=== PATIENT | female | born 1970 | race Caucasian/White ===

== ENCOUNTER → 2018-11-18 | Outpatient (CLI) | payer OTHER | LOC: MAMMO 11:35 | PROVIDERS: ATTEND Family Medicine | DX: Z12.31 Encounter for screening mammogram for malignant neoplasm of breast (principal) | CPT/HCPCS: 77067 ==

== ENCOUNTER → 2018-12-16 | Outpatient (CLI) | payer OTHER ==
--- NOTE | 2018-12-19 08:23 | Diagnostic Imaging Report ---
#[id number] - USBRELIMLT ULTRASOUND OF THE LEFT BREAST : 12/16/2018 Comparison is made to exams dated: 12/16/2018 mammogram and 11/18/2018 mammogram - [facility]. Color flow and real-time ultrasound were performed on the left breast with scanning in the lower inner quadrant. -There is a hypoechoic nodule measuring 1.0 x 0.5 x 0.6 cm at the 9 o'clock position 1 cm from the nodule. This nodule is small with a smooth margin and is likely benign. IMPRESSION: PROBABLY BENIGN - FOLLOW-UP RECOMMENDED A follow-up mammogram and an ultrasound in 6 months is recommended to demonstrate stability. The patient was notified of these findings and the need for followup. Fede Bhatti Jr., D.O. cw/:12/16/2018 16:01:06 Stock Transfer Clerk: GABRIELA GALINDO RDMS, [facility] letter sent: Followup Recommended Ultrasound BI-RADS: 3 Probably benign
--- NOTE | 2018-12-19 08:23 | Diagnostic Imaging Report ---
#[id number] - MGDXLT #UNILATERAL LEFT DIGITAL DIAGNOSTIC MAMMOGRAM WITH SPOT COMPRESSION: 12/16/2018 Comparison is made to exam dated: 11/18/2018 mammogram - [facility]. Current study contains 3 films. The tissue of the left breast is heterogeneously dense. This may lower the sensitivity of mammography. The density in question at the 7-8 o'clock position persists even with focal spot compression. An ultrasound is recommended for further evaluation. IMPRESSION: INCOMPLETE: NEEDS ADDITIONAL IMAGING EVALUATION Density in the left breast persists with focal spot compression. Ultrasound recommended and will be performed today. Fede Bhatti Jr., D.O. cw/:12/16/2018 15:50:33 Sales Center Associate: Porsche MCDONALD([place])(M), [facility] letter sent: Additional Imaging Needed Mammogram BI-RADS: 0 Indeterminate
== END ==
LOC: MAMMO 14:42
PROVIDERS: ATTEND Family Medicine
DX: N63.20 Unspecified lump in the left breast, unspecified quadrant (principal)